=== PATIENT | female | born 1980 | race American Indian/Alaskan Native ===

== ENCOUNTER 2016-10-22 17:46 | Emergency (ER) | payer OTHER, MEDICAID ==
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
[2016-10-22 18:36] VITALS: BP 150/102
--- NOTE | 2016-10-22 19:21 | Cat Scan Report ---
FINAL REPORT PROCEDURE: CT HEAD/BRAIN WO CON TECHNIQUE: Computerized tomography of the head was performed without contrast material. HISTORY: Closed head injury, visual changes, dizziness. COMPARISON: No prior studies are available for comparison. FINDINGS: Skull and scalp: Normal. Paranasal sinuses: Scattered ethmoid and sphenoid sinusitis. Limited visualization of the left maxillary sinus shows mild sinusitis. Ventricles and subarachnoid spaces: Normal. Cerebrum: No evidence of hemorrhage, acute infarction or mass . Cerebellum and brainstem: No evidence of hemorrhage, acute infarction or mass. Vasculature: Normal. Comments: None. IMPRESSION: No CT evidence of acute intracranial pathology. Consider MRI of the brain for further characterization if there is continued clinical concern and if patient has no contraindication to MRI. Sinusitis.
--- NOTE | 2016-10-22 19:21 | Cat Scan Report ---
FINAL REPORT PROCEDURE: CT CERVICAL SPINE WO CON TECHNIQUE: Computerized tomography of the cervical spine was performed from the skull base to T1 without contrast material. HISTORY: Closed head injury, visual changes, dizziness. COMPARISON: CT scan of the brain dated same day and time. FINDINGS: C1-2: No significant abnormality. C2-3: Slight disc bulge. C3-4: No significant abnormality. C4-5: No significant abnormality. Lucency in the left articular pillar (image 76). C5-6: No significant abnormality. C6-7: No significant abnormality. C7-T1: No significant abnormality. Other: Slight irregularity of the right costovertebral junction. Margins are well corticated. Sphenoid sinusitis. Small scattered subcentimeter lymph nodes. IMPRESSION: No CT evidence of cervical spine fracture. Slight irregularity of the right 1st costovertebral junction, felt to be volume averaging and/or chronic/degenerative. Lucency in the left articular pillar at the C4-5 level likely vascular channel. Consider MRI for further characterization if there is continued clinical concern for subtle superimposed acute injury and if patient has no contraindication to MRI. Sphenoid sinusitis.
[2016-10-22] MEDS ORDERED: MOTRIN PO ONE (21:27)
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
== END 2016-10-22 22:39 | disposition home or self-care (01) ==
LOC: ED 17:46
DX: S16.1XXA Strain of muscle, fascia and tendon at neck level, initial encounter (principal); M54.5 Low back pain; J01.90 Acute sinusitis, unspecified; I10 Essential (primary) hypertension; F17.200 Nicotine dependence, unspecified, uncomplicated; V49.49XA Driver injured in collision with other motor vehicles in traffic accident, initial encounter; Y93.9 Activity, unspecified; Y92.9 Unspecified place or not applicable; Y99.9 Unspecified external cause status
CPT/HCPCS: 70450; 72125; 99283

== ENCOUNTER 2017-07-11 22:41 | Emergency (ER) | payer MEDICAID, OTHER ==
[2017-07-11 22:53] VITALS: BP 179/108
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
== END 2017-07-12 01:22 | disposition left against medical advice (07) ==
LOC: ED 22:41
DX: M54.6 Pain in thoracic spine (principal); R07.89 Other chest pain; M54.5 Low back pain; I10 Essential (primary) hypertension; F17.200 Nicotine dependence, unspecified, uncomplicated; Z90.49 Acquired absence of other specified parts of digestive tract; V49.49XA Driver injured in collision with other motor vehicles in traffic accident, initial encounter; Y93.89 Activity, other specified; Y92.89 Other specified places as the place of occurrence of the external cause; Y99.8 Other external cause status
CPT/HCPCS: 93005; 93010; 99282